=== PATIENT | female | born 1990 | race Caucasian/White ===

== ENCOUNTER 2022-01-19 17:30 | Outpatient (CLI) | payer BC | END 2022-01-19 17:31 | disposition home or self-care (01) | LOC: SLEEPLAB 17:30 | PROVIDERS: ATTEND Family Medicine | DX: G47.33 Obstructive sleep apnea (adult) (pediatric) (principal); R53.83 Other fatigue; K21.9 Gastro-esophageal reflux disease without esophagitis; F41.9 Anxiety disorder, unspecified; R06.83 Snoring; M41.9 Scoliosis, unspecified; G47.00 Insomnia, unspecified; G47.10 Hypersomnia, unspecified | CPT/HCPCS: 95800 ==